=== PATIENT | male | born 1985 | race American Indian/Alaskan Native ===

== ENCOUNTER 2016-11-11 08:16 | Emergency (ER) | payer SELFPAY ==
[2016-11-11 08:25] VITALS: BP 131/86
[2016-11-11] MEDS ORDERED: ZITHROMAX PO ONE (08:46)
[2016-11-11] MEDS ORDERED: ROCEPHIN IM ONE (08:46)
[2016-11-11] MEDS ORDERED: XYLOCAINE 1% MPF 5 mL INFILTRATI ONE (08:46)
--- NOTE | 2016-11-11 09:06 | Emergency Department Report ---
ED Male HPI - General Chief complaint: Urogenital-Male Stated complaint: STD CK Time Seen by Provider: 11/11/16 08:45 Source: patient Mode of arrival: Ambulatory Limitations: No Limitations - History of Present Illness Initial comments: 31-year-old male past medical history Chlamydia 10 years ago presents with complaint of 2 weeks of penile discharge and slight dysuria. Patient states he has had more than one sexual partner in the last 2 months unprotected. Approximately 2 weeks ago started having burning with urination with whitish yellowish discharge from tip of penis. Denies any testicular pain no lesions in the genitourinary region only complaining of discharge. MD Complaint: dysuria Onset/Timin -: week(s) Location: penis Radiation: none Severity: moderate Quality: burning Consistency: intermittent Worsens with: urination discharge - Related Data Home Medications Medication Instructions Recorded Confirmed Last Taken No Known Home Medications [No 11/11/16 11/11/16 Unknown Reported Home Medications] Allergies Allergy/AdvReac Type Severity Reaction Status Date / Time No Known Allergies Allergy Unverified 11/11/16 08:21 ED Review of Systems ROS: Stated complaint: STD CK Other details as noted in HPI ED Past Medical Hx - Past Medical History Previous Medical History?: No - Surgical History Past Surgical History?: No - Social History Smoking Status: Current Every Day Smoker Substance Use Type: Alcohol - Medications Home Medications: Home Medications Medication Instructions Recorded Confirmed Last Taken Type No Known Home Medications [No 11/11/16 11/11/16 Unknown History Reported Home Medications] ED Physical Exam - General Limitations: No Limitations General appearance: alert, in no apparent distress - Head Head exam: Present: atraumatic, normocephalic - Eye Eye exam: Present: normal appearance - ENT ENT exam: Present: mucous membranes moist - Neck Neck exam: Present: normal inspection, full ROM - Respiratory Respiratory exam: Present: normal lung sounds bilaterally. Absent: respiratory distress - Cardiovascular Cardiovascular Exam: Present: regular rate, normal rhythm. Absent: systolic murmur, diastolic murmur, rubs, gallop - GI/Abdominal GI/Abdominal exam: Present: soft, normal bowel sounds - Rectal Rectal exam: Present: deferred - exam: Present: urethral discharge (yellowish discharge on exam, no testicle tenderness or external lesions) - Extremities Exam Extremities exam: Present: normal inspection, full ROM, normal capillary refill - Back Exam Back exam: Present: normal inspection, full ROM - Neurological Exam Neurological exam: Present: alert, oriented X3, CN II-XII intact - Psychiatric Psychiatric exam: Present: normal affect, normal mood - Skin Skin exam: Present: warm, dry, intact, normal color. Absent: rash ED Course Vital Signs 11/11/16 08:20 Temperature 97.8 F Pulse Rate 80 Respiratory 18 Rate Blood Pressure 131/86 O2 Sat by Pulse 100 Oximetry ED Medical Decision Making - Medical Decision Making A/P: Urethritis 1-as patient has history of chlamydia will treat empirically with azithromycin and ceftriaxone, urine culture sent 2-I educated patient on safe sex practices 3-primary care follow-up Critical care attestation.: If time is entered above; I have spent that time in minutes in the direct care of this critically ill patient, excluding procedure time. ED Disposition Clinical Impression: Urethritis Disposition: DISCHARGED TO HOME OR SELFCARE Is pt being admited?: No Does the pt Need Aspirin: No Condition: Stable Instructions: Chlamydia Infection (ED), Nonspecific Urethritis in Men (ED) Referrals: [facility] [Provider Group] - 3-5 Days [facility] [Outside] - 3-5 Days Forms: STI Treatment and Prevention
[2016-11-11 09:48] LABS: Bilirubin,Urine NEG (Negative); Blood,Urine SM (Negative); Ketones,Urine NEG (Negative); Leukocyte Esterase,Urine NEG (Negative); Mucus,Urine FEW /HPF; Nitrite,Urine NEG (Negative); Protein,Urine <15 mg/dL mg/dL (Negative); Urobilinogen,Urine < 2.0 mg/dL (<2.0)
== END 2016-11-11 10:09 | disposition home or self-care (01) ==
LOC: ED 08:16
DX: N34.2 Other urethritis (principal); F17.200 Nicotine dependence, unspecified, uncomplicated
CPT/HCPCS: 81001; 87086; 96372; 99283; J0696